=== PATIENT | female | born 1950 | race Caucasian/White ===

== ENCOUNTER 2020-12-29 12:43 | Emergency (ER) | payer MEDICARE ==
[~2020-12-29] VITALS: Ht 162.6 cm; Wt 68.0 kg
[2020-12-29 14:11] VITALS: BP 132/73
[2020-12-29] MEDS ORDERED: HYDR-3965 PO (15:04)
== END 2020-12-29 16:00 | disposition home or self-care (01) ==
LOC: ER 12:43
DX: S82.832A Other fracture of upper and lower end of left fibula, initial encounter for closed fracture (principal); E78.00 Pure hypercholesterolemia, unspecified; I10 Essential (primary) hypertension; X50.1XXA Overexertion from prolonged static or awkward postures, initial encounter; Y93.01 Activity, walking, marching and hiking; Y92.89 Other specified places as the place of occurrence of the external cause; Y99.8 Other external cause status
CPT/HCPCS: 73610; 99283